=== PATIENT | female | born 1950 | race Caucasian/White ===

== ENCOUNTER → 2017-01-31 | Outpatient (CLI) | payer OTHER ==
[~2017-01-31] MED LIST: DOXY100C15 PO; ESOM40CA PO; IMMODIUM; INHALER INH; LACT1CAP37 PO; LORA1TAB PO; ONDA8TAB9 PO; PROC25SU25 PR
== END | disposition home or self-care (01) ==
LOC: ROC 07:35
PROVIDERS: ATTEND Radiology Radiation Oncology
DX: C21.1 Malignant neoplasm of anal canal (principal); Z92.3 Personal history of irradiation; Z92.21 Personal history of antineoplastic chemotherapy
CPT/HCPCS: 99212; G0463

== ENCOUNTER → 2017-03-01 | Outpatient (CLI) | payer OTHER ==
[~2017-03-01] MED LIST changes: +OMNIPAQUE 350 MG/ML, 100ML BOTTLE ONE
== END | disposition home or self-care (01) ==
LOC: CFH 07:33
PROVIDERS: ATTEND Internal Medicine Hematology & Oncology
DX: C21.1 Malignant neoplasm of anal canal (principal); I25.10 Atherosclerotic heart disease of native coronary artery without angina pectoris; I70.0 Atherosclerosis of aorta; M41.9 Scoliosis, unspecified
CPT/HCPCS: 71260; 74177; Q9967

== ENCOUNTER → 2017-07-18 | Outpatient (CLI) | payer OTHER ==
[~2017-07-18] MED LIST changes: -OMNIPAQUE 350 MG/ML, 100ML BOTTLE ONE
== END ==
LOC: ROC 07:36
PROVIDERS: ATTEND Radiology Radiation Oncology
DX: C21.1 Malignant neoplasm of anal canal (principal); Z88.5 Allergy status to narcotic agent
CPT/HCPCS: 99212; G0463

== ENCOUNTER → 2018-03-06 | Outpatient (CLI) | payer OTHER ==
[~2018-03-06] MED LIST changes: +OMNIPAQUE 350 MG/ML, 100ML BOTTLE ONE
== END | disposition home or self-care (01) ==
LOC: CFH 07:41
PROVIDERS: ATTEND Internal Medicine Hematology & Oncology
DX: C21.1 Malignant neoplasm of anal canal (principal); Z87.891 Personal history of nicotine dependence
CPT/HCPCS: 71260; 74177; Q9967